=== PATIENT | male | born 1940 | race Caucasian/White ===

== ENCOUNTER → 2016-12-14 | Day surgery (SDC) | payer MEDICARE ==
[~2016-12-14] VITALS: Ht 165.1 cm; Wt 59.0 kg
[~2016-12-14] MED LIST: BUPIVACAINE HCL PF 0.5% 30 ML VIAL ONE; DEXT 5%-NACL 0.45% 1000 ML INJ 1,000 ML IV SCH; ECON0.052 TOPICAL; ESTA1TAB2 PO; FAMOTIDINE 20 MG/2 ML VIAL ONE; IBUP800T23 PO; LACTATED RINGER'S 1000 ML INJ 1,000 ML ONE; MEPERIDINE HCL 25 MG/ML VIAL ONE; MIDAZOLAM HCL 2 MG/2 ML VIAL ONE; MULT1TAB84 PO; ONDANSETRON HCL 4 MG/2 ML VIAL IV PUSH ONE; POVIDONE IODINE 10% OINT 1 PACKET ONE; PROPOFOL 200 MG/20 ML AMP IV ONE; SODIUM CHLORIDE 0.9% FLUSH 5 ML FLUSH IVF PRN; SODIUM CHLORIDE 0.9% FLUSH 5 ML FLUSH IVF SCH; ceFAZolin 2 GM PREMIX 50 ML ONE
[2016-12-14 06:40] VITALS: BP 128/76; PULSE 55; RESP 20; TEMP 97.9; O2SAT 98
[2016-12-14 07:08] LABS: HEMATOCRIT 42.1 % (39.0-51.0); MEAN CORPUSCULAR HGB CONC 33.3 % (32.0-36.0); PLATELET COUNT 165 TH/MM3 (150-450); RED BLOOD COUNT 4.84 MIL/MM3 (4.50-5.90); RED CELL DISTRIBUTION WIDTH 13.4 % (11.6-17.2); REVIEW FLAG FINAL; WHITE BLOOD COUNT 5.5 TH/MM3 (4.0-11.0)
--- NOTE | 2016-12-14 07:55 | HP.UPD ---
H&P Update Date: December 14, 2016 Note The Pre-Admit History and Physical Examination regarding the above named patient was reviewed (including, but not limited to, vital signs, medications, allergies, co-morbid conditions), and upon re-examination it is noted that: Indicated with "X" x - the patient's condition has not significantly changed since the last examination. [] - the patient's condition has changed since the last examination. Changes: Sonal Arndt MD December 14, 2016 07:55
[2016-12-14 09:42] VITALS: PULSE 65
--- NOTE | 2016-12-14 09:57 | HHI.PR ---
Immediate Post Op Note Procedure Date: December 14, 2016 Pre Op Diagnosis: (1) Dupuytren's contracture of left hand Post Op Diagnosis: (1) Dupuytren's contracture of left hand Surgeon: Sonal Arndt [employer]idential Lawn Specialist(s): None. Procedure: Release Dupuytren's contracture of the left palm and third finger. Specimen(s) removed: Dupuytren's fascia. Anesthesia: General Drains: None Tourniquet time (min at mmHg) 51 minutes at 220 mm Hg. Patient to: PACU Patient Condition: Good Date/Time of Procedure: SEE SURGICAL CARE RECORD Sonal Arndt MD December 14, 2016 09:57
[2016-12-14 11:00] VITALS: BP 123/65; PULSE 64; RESP 18; TEMP 97.8; O2SAT 97
--- NOTE | 2016-12-15 23:38 | MP ---
cc: CATRACHITA CAMP M.D. DATE OF SURGERY: 12/14/2016 PREOPERATIVE DIAGNOSIS: Dupuytren's disease of the left palm and third finger. POSTOPERATIVE DIAGNOSIS: Dupuytren's disease of the left palm and third finger. PROCEDURE: Release Dupuytren's contracture with palmar fasciectomy of the left palm and third finger. ANESTHESIA: General. SURGEON: Dr. Camp. INDICATIONS 76-year-old male with Dupuytren's contracture and nodules in the area of the first web space, third, fourth and fifth digital rays of the palm, as well as over the PIP joint and the palmar surface of the third finger. At the completion of the procedure all of these areas had been treated with the Dupuytren nodule removed. TOURNIQUET TIME: Tourniquet time was 51 minutes. DESCRIPTION OF PROCEDURE: The patient was seen preoperatively where the sites and side were identified and marked. The patient was then taken to the operating room, placed in supine position. His identity was checked against the arm band and the consent form site and side confirmed, time-out called prior to beginning the procedure. The left upper extremity was prepped with Hibiclens and draped in the usual sterile fashion. The areas to be incised were outlined with a marking pen as they had previously been marked in the holding area and zig-zag incisions were designed. Transverse incision over the PIP joint of the third finger. The arm was exsanguinated and the tourniquet inflated to 220 mmHg. Bupivacaine 0.5% plain was used to make an ulnar nerve block and a median nerve block. A 15 blade was then used to make a zig-zag incision over the area at the first web space and the palm where the Dupuytren's fascia was. Incision was made down through the skin, down to the subcutaneous tissue. Under loupe magnification the Dupuytren bands were carefully dissected free and excised. Attention then turned to the fourth finger where a cord was present. A zigzag incision was designed over this. The incision was made down through the skin, down through the subcutaneous tissue. Under loupe magnification the Dupuytren's fascia was from the skin and then from the deep structures. In addition, there was a Dupuytren nodule over the third ray and the palm. Through the same incision, dissection was continued through that direction and the nodule was removed. There was also a small nodule over the fifth ray which was also removed in a similar fashion. Attention was then turned to the third finger where a transverse incision was made over the PIP joint. Under loupe magnification the Dupuytren nodule was carefully dissected free and removed. All wounds were then copiously irrigated with saline and closed with 5-0 nylon. Once this was completed, the tourniquet was released after 51 minutes of tourniquet time. Pressure was applied. After several minutes there was no evidence of any oozing and a dressing was applied using povidone-iodine ointment, Adaptic, Telfa, fluffy gauze, hand wrap and a dorsal splint. The patient was then taken from the operating room to the recovery room in satisfactory condition having tolerated the procedure well. Postoperative instructions include keeping the arm elevated, keeping it clean and dry and returning in several days for follow up. MD ESCOBAR Wilder/JOHN /10:01 AM /11:23 PM
--- NOTE | 2016-12-16 11:08 | EKG ---
Date Performed: 12/14/2016 Time Performed: 07:08:50 PTAGE: 76 years EKG: Sinus bradycardia with PAC(s). Normal ECG except for rate PREVIOUS TRACING : 02/03/2016 08.22 Since previous tracing, no significant change noted DOCTOR: Maddi Oglesby Interpretating Date/Time 12/17/2016 09:07:23
== END | disposition home or self-care (01) ==
LOC: PHSDC 05:59
PROVIDERS: ATTEND Specialist
DX: M72.0 Palmar fascial fibromatosis [Dupuytren] (principal); R00.1 Bradycardia, unspecified
CPT/HCPCS: 01810; 26123; 36415; 85027; 88304; 93005; J0690; J2175; J2250; J2405; J3010; J7120; 88305